=== PATIENT | male | born 1955 | race Caucasian/White ===

== ENCOUNTER → 2020-04-10 12:05 | Outpatient (CLI) | payer MEDICARE, SELFPAY ==
--- NOTE | 2020-04-10 12:09 | DI.MRI.S_ITS ---
PROCEDURE: MR KNEE RT WO CON INDICATIONS: Unspecified internal derangement of bilateral knee TECHNIQUE: Noncontrast sagittal PD fast spin echo and T2 fast spin echo with fat saturation, sagittal 3-D FLASH with fat saturation; coronal T1 spin echo and PD fast spin echo with fat saturation, and axial PD fast spin echo with fat saturation through the knee. COMPARISON: None. FINDINGS: Image quality: Excellent. Menisci: Medial extrusion of the medial meniscus is present. There is linear and amorphous high signal intensity within the medial meniscal body and posterior horn, demonstrating superior and inferior articular surface extension, indicating complex tearing. There is linear oblique high T2 signal intensity traversing the lateral meniscal body, demonstrating inferior articular surface extension, indicating oblique tearing. Cruciate ligaments: The anterior and posterior cruciate ligaments appear intact. Medial structures: The medial collateral ligament appears intact. Visualized portions of the pes anserinus tendons appear normal. Moderate medial bursal fluid. Lateral structures: The lateral collateral ligament demonstrates mild fluid signal intensity at the femoral origin. The long and short heads of the biceps femoris tendon appear intact. The popliteus tendon appears normal. Iliotibial band appears normal. Anterior structures: The quadriceps and patellar tendons appear intact. Patellar alignment is normal. No femoral trochlear dysplasia or ventral trochlear prominence. No edema in the infrapatellar fat pad. Bones and cartilage: No bone marrow contusions or fractures. 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 Moderate to severe articular cartilage loss overlies the lateral patellar facet laterally. Severe articular cartilage loss overlies the weight-bearing aspects of the medial femoral condyle and medial tibial plateau. Mild articular cartilage loss overlies the weight-bearing aspects of the lateral femoral condyle and lateral tibial plateau. Joint space: There is a small knee joint effusion and a small Zaman's cyst. Normal appearing synovial plicae are incidentally noted. IMPRESSION: 1. Tricompartmental osteoarthritis with associated articular cartilage loss. 2. Medial and lateral meniscal tearing. 3. Knee joint effusion and Zaman's cyst. 4. Medial bursitis. 5. Partial thickness lateral collateral ligament tear. 6. 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 Dictated by: Aubree Lugo M.D. on 04/10/2020 at 13:33 Approved by: Aubree Lugo M.D. on 04/10/2020 at 13:36
--- NOTE | 2020-04-10 12:09 | DI.MRI.S_ITS ---
PROCEDURE: MR KNEE LT WO CON INDICATIONS: Unspecified internal derangement of bilateral knee TECHNIQUE: Noncontrast sagittal PD fast spin echo and T2 fast spin echo with fat saturation, sagittal 3-D FLASH with fat saturation; coronal T1 spin echo and PD fast spin echo with fat saturation, and axial PD fast spin echo with fat saturation through the knee. COMPARISON: FINDINGS: Image quality: Excellent. Menisci: Medial extrusion of the medial meniscus. Linear and amorphous high signal intensity within the anterior horn, body, and posterior horn medial meniscus, demonstrating superior and inferior articular surface extension. Linear oblique and horizontal high signal intensity within the anterior horn and body of the lateral meniscus, demonstrating superior and inferior articular surface extension, indicating complex tearing. Cruciate ligaments: The anterior and posterior cruciate ligaments appear intact. Medial structures: The medial collateral ligament appears intact but demonstrates moderate surrounding T2 signal elevation. Visualized portions of the pes anserinus tendons appear normal. Mild T2 signal elevation within the tibial insertion of the semimembranosus. No abnormal bursal fluid. Lateral structures: The lateral collateral ligament demonstrates mild T2 signal elevation at the femoral origin. The long and short heads of the biceps femoris tendon appear intact. The popliteus tendon appears normal. Iliotibial band appears normal. Anterior structures: The quadriceps and patellar tendons appear intact. Patellar alignment is normal. No femoral trochlear dysplasia or ventral trochlear prominence. No edema in the infrapatellar fat pad. Bones and cartilage: No bone marrow contusions or fractures. There is mild tricompartmental periarticular osteophyte formation. Severe articular cartilage loss diffusely overlies the weight-bearing aspects of the medial femoral condyle and medial tibial plateau. Moderate articular cartilage loss diffusely overlies the weight-bearing aspects of the lateral femoral condyle and lateral tibial plateau. Mild articular cartilage loss overlies the medial and lateral patellar facets. Joint space: There is a small knee joint effusion and a small Zaman's cyst. Normal appearing synovial plicae are incidentally noted. IMPRESSION: 1. Tricompartmental osteoarthritis with associated articular cartilage loss. 2. Medial and lateral meniscal tearing. 3. MCL strain. 4. Partial thickness lateral collateral ligament tear. 5. Insertional tendinitis of the semimembranosus. 6. Knee joint effusion and Zaman's cyst. Dictated by: Aubree Lugo M.D. on 04/10/2020 at 13:38 Approved by: Aubree Lugo M.D. on 04/10/2020 at 13:41
== END ==
PROVIDERS: Family Provider Family Medicine; PCP Family Medicine; Referring Provider Family Medicine; Visit Provider Family Medicine
DX: S83.231A Complex tear of medial meniscus, current injury, right knee, initial encounter (principal); S83.281A Other tear of lateral meniscus, current injury, right knee, initial encounter; S83.232A Complex tear of medial meniscus, current injury, left knee, initial encounter; S83.272A Complex tear of lateral meniscus, current injury, left knee, initial encounter; S83.412A Sprain of medial collateral ligament of left knee, initial encounter; S83.411A Sprain of medial collateral ligament of right knee, initial encounter; M17.0 Bilateral primary osteoarthritis of knee; M71.22 Synovial cyst of popliteal space [Baker], left knee; M71.21 Synovial cyst of popliteal space [Baker], right knee
CPT/HCPCS: 73721

== ENCOUNTER 2024-06-11 09:26 | Day surgery (SDC) | payer MEDICARE, SELFPAY ==
[2024-06-11 10:39] VITALS: BP 161/92; PULSE 75; RESP 16; TEMP 36.6; O2SAT 96
[2024-06-11] MEDS: LACTATED RINGERS 1,000 ML 42 ML IV (10:54)
--- NOTE | 2024-06-11 11:17 | P.HP_ITS ---
History of Present Illness History of Present Illness Date Patient Seen: 06/11/24 Time Patient Seen: 11:17 Chief complaint: Colonoscopy Narrative: 69-year-old white male presents for initial screening colonoscopy. No family history. No changes in bowel habits. [facility] Medical History (Updated 06/11/24 @ 11:18 by Jeremie Das MD) Colon cancer screening (06/11/24) Pain, eye, right Social History Smoking Status: Former smoker alcohol intake: current Meds Home Medications and Allergies Home Medications Medication Instructions Recorded Confirmed Type metoprolol succinate 25 mg 25 mg PO DAILY 07/29/20 06/11/24 History tablet,extended release 24 hr oxycodone 10 mg tablet 10 mg PO Q4H PRN Pain (Scale Score 07/29/20 06/11/24 His tory 4-6) Allergies Allergy/AdvReac Type Severity Reaction Status Date / Time No Known Drug Allergies Allergy Verified 07/31/20 08:08 Review of Systems Review of Systems ROS: Yes All systems reviewed with the patient and are negative except as otherwise documented Exam Vital Signs (past 8 hours): - 06/11/24 10:39 Temperature 97.8 F Pulse Rate 75 Respiratory Rate 16 Blood Pressure 161/92 H Pulse Oximetry 96 Oxygen Delivery Method Room Air Oxygen Delivery Method Room Air Narrative Exam Narrative: Gen: NAD, sitting comfortably in bed, appears well HEENT: Sclera are anicteric, head is normocephalic and atraumatic, trachea is midline. CV: RRR, no JVD Resp: clear to auscultation bilaterally, equal chest wall movement bilaterally Abd: soft, nontender, normoactive bowel sounds Ext: no edema, full range of motion Neuro: Cranial nerves II-XII grossly intact, no focal deficits Skin: No erythema or ecchymosis Assessment & Plan Assessment and plan (1) Colon cancer screening: Status: Acute Assessment & Plan narrative: Patient presents for colonoscopy Risks, benefits, alternatives to colonoscopy explained, including but not limited to bowel perforation or other serious complication requiring surgery at less than 1 in 5000 colonoscopies, abdominal pain, cramping or bleeding and less than 1% of colonoscopies, and the chances that we find a diagnosis that would require further intervention of about 2%. Patient agrees to proceed. Time-Based Coding :: [TOTAL MINUTES] spent with patient and on the chart (including review of chart, obtaining history, exam, reviewing outside data, placing orders, documenting exam and treatment plan, and counseling patient) on [DATE]. [facility]EE [facility] Medical Inpatient Services Document charge(s): No
--- NOTE | 2024-06-11 11:46 | P.OP.COLON_ITS ---
Operative Date/Time/Diagnoses Date of procedure: 06/11/24 Time of procedure: 11:47 Pre-op diagnosis: Colon screening Post-op diagnosis: same Procedure & Clinicians Study performed: Colonoscopy Same procedure as scheduled: Yes Indications: Colon screening Surgeon: Jeremie Das Procedure Notes SCOAP/Timeout: Performed Procedure in detail: Time-out was performed. Mac was induced. Patient was placed in left lateral d ecubitus position. The perineum was inspected without any gross abnormality. Lubricated pediatric colonoscope was inserted and advanced to the cecum. The terminal ileum was intubated. The colonoscope was withdrawn slowly inspecting the circumference of the colon. Very small polyps may have been missed, prep quality was adequate. Retroflexed view of the rectum showed small, non prolapsed nonbleeding internal hemorrhoids. The scope was withdrawn the patient was taken to PACU in good condition. Scope withdrawal time: 6 Specimen(s): none sent Complications: none Post-procedure Recommendations: Colonoscopy in 10 years Plan for aftercare: Home Follow up: as needed Disposition: PACU
[2024-06-11 11:49] VITALS: BP 97/61; PULSE 57; RESP 7; TEMP 36.6; O2SAT 94
[2024-06-11 11:54] VITALS: BP 97/62; PULSE 54; RESP 14; O2SAT 94
[2024-06-11 12:00] VITALS: BP 102/64; PULSE 58; RESP 13; O2SAT 98
[2024-06-11 12:10] VITALS: BP 112/72; PULSE 2; RESP 13; O2SAT 93
== END 2024-06-11 12:27 | disposition home or self-care (01) ==
PROVIDERS: Family Provider Family Medicine; PCP Family Medicine; Referring Provider Surgery; Visit Provider Surgery
PROC: 0DJD8ZZ Inspection of Lower Intestinal Tract, Via Natural or Artificial Opening Endoscopic (ICD-10-PCS; CPT 45378; principal; 2024-06-11 10:45)
DX: Z12.11 Encounter for screening for malignant neoplasm of colon (principal); Z87.891 Personal history of nicotine dependence; K64.8 Other hemorrhoids
CPT/HCPCS: G0121; J2704